=== PATIENT | female | born 1950 | race Caucasian/White ===

== ENCOUNTER 2023-01-17 06:21 | Day surgery (SDC) | payer OTHER ==
[~2023-01-17] VITALS: Ht 160 cm; Wt 87.5 kg
[~2023-01-17 06:21] MED LIST: ADULT LOW DOSE81 M1 PO; ATACAND32 MG PO; GLUMETZA500 MG PO; TOPROL XL100 M1 PO; TOPROL XL25 M1 PO; VITAMIN B12 PO; VITAMIN D3 PO; ZANAF PO
== END 2023-01-17 12:55 | disposition home or self-care (01) ==
LOC: CIR.AMB 06:21 → EDSTATUS 07:00 → SURH 07:00 → CIR.AMB 12:55
PROVIDERS: ATTEND Anesthesiology Pain Medicine
DX: M48.061 Spinal stenosis, lumbar region without neurogenic claudication (principal); E11.9 Type 2 diabetes mellitus without complications; Z20.822 Contact with and (suspected) exposure to COVID-19

== ENCOUNTER 2023-08-30 15:55 | Emergency (ER) | payer OTHER ==
[~2023-08-30] VITALS: Ht 157.5 cm; Wt 85.3 kg
[2023-08-30] MEDS ORDERED: CLONAZEPAM2 MG (16:16)
[2023-08-30] MEDS ORDERED: METFORMIN HCL500 M3 (16:17)
[2023-08-30] MEDS ORDERED: ALPHAGAN P5 M2 (16:17)
[2023-08-30] MEDS ORDERED: LATANOPROST2.5 ML (16:19)
[2023-08-30 19:21] LABS: HEMATOCRIT 35.8 % (36.0-45.00); HEMOGLOBIN 12.2 g/dL (12.0-15.00); MEAN CELL VOLUME 97.8 fL (80.00-100.00); MEAN CORPUSCULAR HEMOGLOBIN 33.3 pg (27.00-32.0); MEAN CORPUSCULAR HGB CONC 34.1 g/dl (32.0-36.0); PLATELET COUNT 392 K/uL (150-450); RED BLOOD COUNT 3.66 M/uL (4.00-6.00); RED CELL DISTRIBUTION WIDTH 12.7 % (11.5-14.5)
[2023-08-30 19:58] LABS: CALCIUM 9.8 mg/dL (8.5-10.1); CREATININE SERUM 0.64 mg/dL (0.55-1.02); GFR 90.46; POTASSIUM 4.06 mEq/L (3.5-5.1)
[2023-08-30 20:07] LABS: URINE APPEARANCE Clear; URINE BILIRRUBIN Negative (NEGATIVE); URINE BLOOD Negative; URINE COLOR Yellow; URINE GLUCOSE Negative (NEGATIVE); URINE LEUKOCYTE Negative; URINE NITRATE Negative; URINE PROTEIN Negative (NEGATIVE); URINE UROBILINOGEN 0.2 E.U./dl
[2023-08-30 20:10] LABS: URINE BACTERIA 17.6 uL (0.0-1933); URINE EPITHELIAL CELLS 2.1 uL (0.0-38.8); URINE RBC 2.1 uL (0.0-20.8); URINE WBC 3.6 uL (0.0-23.2)
[2023-08-30] MEDS ORDERED: PRILOSEC OTC20 MG PO (20:42)
[2023-08-30] MEDS ORDERED: PEPCID40 MG PO (20:42)
[2023-08-30] MEDS ORDERED: CARAFATE1 GM PO (20:42)
== END 2023-08-30 22:08 | disposition home or self-care (01) ==
LOC: ER 15:55
PROVIDERS: Nurse Practitioner Family
DX: K57.32 Diverticulitis of large intestine without perforation or abscess without bleeding (principal); E11.9 Type 2 diabetes mellitus without complications; Z79.84 Long term (current) use of oral hypoglycemic drugs; I10 Essential (primary) hypertension
CPT/HCPCS: 36415; 74176; 96365; 99284; J0500; J0744; J2270; J3490